=== PATIENT | male | born 1980 | race African-American/Black ===

== ENCOUNTER 2016-12-26 17:15 | Emergency (ER) | payer OTHER ==
[~2016-12-26] VITALS: Ht 176 cm; Wt 72.0 kg
[2016-12-26 17:18] VITALS: TEMP 97.8
[2016-12-26] MEDS ORDERED: PRILOSEC 20MG20 MG PO (18:24)
[2016-12-26] MEDS ORDERED: MILK OF MA400 MG/52 PO (18:25)
[2016-12-26 18:39] LABS: BASO % 0.2 % (0.0-2.0); EOS # 0.1 (0.0-0.7); EOS % 0.8 % (0-4.0); GRAN # 7.4 (1.4-6.5); GRAN % 77.6 % (42.2-75.2); HEMATOCRIT 44.3 % (42.0-52.0); HEMOGLOBIN 15.3 g/dl (13.5-18.0); LYMPH # 1.2 (1.2-3.4); LYMPH % 12.3 % (20.0-51.0); MEAN CELL VOLUME 89 fl (80.0-100.0); MEAN CORPUSCULAR HEMOGLOBIN 31 pg (27.0-31.0); MEAN CORPUSCULAR HGB CONC 35 g/dl (33.0-37.0); MEAN PLATELET VOLUME 9.9 fl (7.4-10.4); MONO # 0.8 (0.1-0.6); MONO % 8.8 % (1.7-9.3); PLATELET COUNT 231 K/mm3 (130-400); RED BLOOD COUNT 4.98 M/mm3 (4.20-5.60); WHITE BLOOD COUNT 9.6 K/mm3 (4.8-10.8)
[2016-12-26 19:09] LABS: ADJUSTED CALCIUM 8.8 mg/dL (8.4-10.2); ALANINE AMINOTRANSFERASE 397 U/L (21-72); ALBUMIN 4.4 gm/dL (3.5-5.0); ALKALINE PHOSPHATASE 250 U/L (50-136); ANION GAP 8 mmol/L (7-16); BILIRUBIN,TOTAL 1.3 mg/dL (0.0-1.0); BLOOD UREA NITROGEN 12 mg/dL (9-20); CALCIUM 9.1 mg/dL (8.4-10.2); CARBON DIOXIDE 28 mmol/L (22-30); CHLORIDE 101 mmol/L (98-107); CREATININE, serum 0.87 mg/dL (0.66-1.25); GLUCOSE 141 mg/dL (74-106); LIPASE 144 U/L (23-300); POTASSIUM 4.1 mmol/L (3.4-5.0); SODIUM 137 mmol/L (137-145)
[2016-12-26 19:13] LABS: C-REACTIVE PROTEIN < 0.5 mg/dL (0.0-0.9)
[2016-12-26 19:18] LABS: TROPONIN-I < 0.012 ng/mL (0.000-0.034)
[2016-12-26] MEDS ORDERED: CIPRO 500MG TA500 MG PO (20:50)
[2016-12-26] MEDS ORDERED: FLAGYL500 MG PO (20:50)
[2016-12-26] MEDS ORDERED: NORCO 325 MG-51 TAB PO (20:50)
[2016-12-26 21:05] VITALS: BP 104/68; PULSE 63
== END 2016-12-26 21:07 | disposition home or self-care (01) ==
LOC: COL.ER 17:15
PROVIDERS: Emergency Medicine
DX: K52.9 Noninfective gastroenteritis and colitis, unspecified (principal)
CPT/HCPCS: J1170; J2405; J7030; J7050; Q9967